=== PATIENT | female | born 1950 | race Caucasian/White ===

== ENCOUNTER 2018-08-22 05:43 | Day surgery (SDC) | payer BC, MEDICARE ==
[2018-08-22] MEDS ORDERED: DIPRIVAN 200 MG/20 ML IV ONE (05:44)
[2018-08-22] MEDS ORDERED: Lactated Ringers 1,000 ML IV SCH (06:00)
[2018-08-22 08:36] VITALS: BP 141/75; PULSE 63; O2SAT 97
--- NOTE | 2018-08-22 10:17 | OP ---
SURGERY DATE/TIME: 08/22/2018711 PREOPERATIVE DIAGNOSES: 1) Epigastric abdominal pain. 2) History of colon polyps. POSTOPERATIVE DIAGNOSES: 1) Normal EGD. 2) Cecal polyp. PROCEDURES: 1) EGD. 2) Colonoscopy. SURGEON: Yfn Lubin M.D. ANESTHESIA: MAC by Mandeep Betancur CRNA. ESTIMATED BLOOD LOSS: Minimal. SPECIMENS: Hot forceps polypectomy from the cecum x1. DESCRIPTION OF PROCEDURE: After informed written consent was obtained, the patient was taken to the endoscopy suite. She underwent monitored anesthesia after a bite block was inserted. The endoscope inserted in posterior oropharynx and under direct visualization the esophagus was traversed. The esophageal mucosa was free of lesions or defects. There was a small hiatal hernia appreciable entering the gastric cavity. The gastric mucosa was free of lesions or defects. There were no obvious ulcerations or evidence of bleeding, etc. The pylorus was traversed and the first and second portions of the duodenum had a normal mucosal appearance. Upon withdrawal the mucosal structures again appeared normal. On retroflexion again there was a small hiatal hernia very minimal in nature appreciable. The scope was removed and the scopes were switched. Digital rectal exam showed normal sphincter tone and no internal lesions. The scope was inserted in the rectum and sequentially the entire colonic mucosa was traversed. The level of cecum was reached and verified with direct visualization of ileocecal valve. There was a small sessile polyp in the pericecal region which was grasped with forceps and cauterized removed in its entirety in two pieces. The entire lesion was removed and the area was hemostatic following removal. Upon withdrawal no other mucosal abnormalities were appreciable. Prior to withdrawal retroflexion was performed and showed no internal lesions. The scope was removed and the patient was transferred to the recovery room in good condition.
== END 2018-08-22 08:51 | disposition home or self-care (01) ==
LOC: SDC 05:43
PROVIDERS: ATTEND Family Medicine
DX: R10.13 Epigastric pain (principal); Z86.010 Personal history of colon polyps; E11.9 Type 2 diabetes mellitus without complications; Z79.4 Long term (current) use of insulin
CPT/HCPCS: 82962; 88305; 94250; J2704

== ENCOUNTER 2022-06-22 13:14 | Day surgery (SDC) | payer MEDICARE ==
[2022-06-22] MEDS ORDERED: Depo-Medrol 40 MG/ML IM ONE (13:15)
[2022-06-22] MEDS ORDERED: XYLOCAINE-MPF 1% 5ML SDV IJ ONE (13:15)
[2022-06-22] MEDS ORDERED: Marcaine Mpf 0.5% Vial 30 Ml IJ ONE (13:15)
--- NOTE | 2022-06-22 21:54 | XRAY ---
Indication: Left SI joint and left greater trochanter bursa injection. Intraoperative fluoroscopy provided for 21 seconds. 3 digital spot image submitted for interpretation demonstrates posterior needle tip projecting over the inferior left SI joint. Second needle tip lateral to left greater trochanter with small amount of contrast injected for needle tip placement. Correlate with intraoperative findings/report.
--- NOTE | 2022-06-22 22:11 | XRAY ---
21 seconds of fluoroscopy was used in surgery for a left sacroiliac joint injection and left greater trochanteric bursa injection.
== END 2022-06-22 15:52 | disposition home or self-care (01) ==
LOC: SDC-PAIN 13:14
PROVIDERS: ATTEND Psychiatry & Neurology Pain Medicine
DX: M46.1 Sacroiliitis, not elsewhere classified (principal); M16.12 Unilateral primary osteoarthritis, left hip; E11.9 Type 2 diabetes mellitus without complications; Z79.899 Other long term (current) drug therapy
CPT/HCPCS: 20610; 27096; 73502; 77002; 82947; G0260; J1030; Q9966

== ENCOUNTER 2022-07-20 08:35 | Day surgery (SDC) | payer MEDICARE ==
[2022-07-20] MEDS ORDERED: XYLOCAINE-MPF 1% 5ML SDV IJ ONE (08:36)
[2022-07-20] MEDS ORDERED: Decadron 4 MG INJ IV ONE (08:36)
[2022-07-20] MEDS ORDERED: DIPRIVAN 200 MG/20 ML IV ONE (10:22)
[2022-07-20] MEDS ORDERED: Lactated Ringers 1,000 ML IV ONE (10:59)
--- NOTE | 2022-07-20 11:31 | XRAY ---
Indication: Bilateral piriformis injections. Intraoperative fluoroscopy provided for 23 seconds. 2 digital spot images submitted for interpretation demonstrate posterior needle tip projecting over the expected left and right piriformis muscles. Small amount of contrast injected for needle tip placement. Correlate with intraoperative findings/report.
--- NOTE | 2022-07-20 12:13 | XRAY ---
23 seconds fluoroscopy time in surgery for bilateral piriformis muscle injections.
== END 2022-07-20 10:45 | disposition home or self-care (01) ==
LOC: SDC-PAIN 08:35
PROVIDERS: ATTEND Psychiatry & Neurology Pain Medicine
DX: M79.18 Myalgia, other site (principal); E11.9 Type 2 diabetes mellitus without complications; Z79.899 Other long term (current) drug therapy
CPT/HCPCS: 20552; 72170; 77002; 82947; 99100; J1100; J2704; Q9966

== ENCOUNTER 2022-08-10 10:01 | Day surgery (SDC) | payer MEDICARE ==
[2022-08-10] MEDS ORDERED: LIDOCAINE HCL 1% 50 MG/5 ML VL PF IJ ONE (10:02)
[2022-08-10] MEDS ORDERED: DIPRIVAN 200 MG/20 ML IV ONE (11:57)
[2022-08-10] MEDS ORDERED: Lactated Ringers 1,000 ML IV ONE (12:42)
--- NOTE | 2022-08-10 13:48 | XRAY ---
8 seconds of fluoroscopy was used in surgery for a bilateral L4-S1 MBB.
--- NOTE | 2022-08-10 19:53 | XRAY ---
Indication: Bilateral L4-S1 MBB. Intraoperative fluoroscopy provided for 8 seconds. Single digital spot image submitted for interpretation demonstrates posterior needle tips projecting over the expected left and right L4-S1 nerve roots. Correlate with intraoperative findings/report.
== END 2022-08-10 12:25 | disposition home or self-care (01) ==
LOC: SDC-PAIN 10:01
PROVIDERS: ATTEND Psychiatry & Neurology Pain Medicine
DX: M47.816 Spondylosis without myelopathy or radiculopathy, lumbar region (principal); E11.9 Type 2 diabetes mellitus without complications; Z79.899 Other long term (current) drug therapy
CPT/HCPCS: 64493; 64494; 72020; 77002; 82947; J2001; J2704

== ENCOUNTER 2022-10-26 09:21 | Day surgery (SDC) | payer MEDICARE ==
[2022-10-26] MEDS ORDERED: BUPIVACAINE 0.5% VIAL IJ ONE (09:22)
[2022-10-26] MEDS ORDERED: DIPRIVAN 200 MG/20 ML IV ONE (11:35)
--- NOTE | 2022-10-26 12:20 | XRAY ---
Indication: Bilateral L4-S1 MBB. Intraoperative fluoroscopy provided for 12 seconds. Single digital spot images submitted for interpretation demonstrates posterior needle tips projecting over the left and right L4-S1 nerve roots. Correlate with intraoperative findings/report. Incidental overlying ventral hernia mesh graft.
--- NOTE | 2022-10-26 13:51 | XRAY ---
12 seconds of fluoroscopy was used in surgery for a bilateral L4-S1 MBB.
[2022-10-26] MEDS ORDERED: Lactated Ringers 1,000 ML IV ONE (16:29)
== END 2022-10-26 12:04 | disposition home or self-care (01) ==
LOC: SDC-PAIN 09:21
PROVIDERS: ATTEND Psychiatry & Neurology Pain Medicine
DX: M47.816 Spondylosis without myelopathy or radiculopathy, lumbar region (principal); E11.9 Type 2 diabetes mellitus without complications; Z79.899 Other long term (current) drug therapy
CPT/HCPCS: 64493; 64494; 72020; 77002; 82947; J2704

== ENCOUNTER 2022-11-23 08:38 | Day surgery (SDC) | payer MEDICARE ==
[2022-11-23] MEDS ORDERED: Depo-Medrol 40 MG/ML IM ONE (08:39)
[2022-11-23] MEDS ORDERED: BUPIVACAINE 0.5% VIAL IJ ONE (08:39)
[2022-11-23] MEDS ORDERED: LIDOCAINE HCL 1% 50 MG/5 ML VL PF IJ ONE (08:39)
[2022-11-23] MEDS ORDERED: DIPRIVAN 200 MG/20 ML IV ONE (10:28)
--- NOTE | 2022-11-23 12:12 | XRAY ---
Indication: Right L4-S1 RFA. Intraoperative fluoroscopy provided for 21 seconds. 2 digital spot images submitted for interpretation demonstrates posterior needle tips projecting over the expected right L4-S1 nerve roots. Correlate with intraoperative findings/report.
--- NOTE | 2022-11-23 12:22 | XRAY ---
21 seconds fluoroscopy time in surgery for right L4-S1 RFA.
[2022-11-23] MEDS ORDERED: Lactated Ringers 1,000 ML IV ONE (15:29)
== END 2022-11-23 11:10 | disposition home or self-care (01) ==
LOC: SDC-PAIN 08:38
PROVIDERS: ATTEND Psychiatry & Neurology Pain Medicine
DX: M47.816 Spondylosis without myelopathy or radiculopathy, lumbar region (principal); E11.9 Type 2 diabetes mellitus without complications; Z79.899 Other long term (current) drug therapy
CPT/HCPCS: 64635; 64636; 72100; 77002; 82947; 99100; J1030; J2001; J2704

== ENCOUNTER 2022-11-30 08:34 | Day surgery (SDC) | payer MEDICARE ==
[2022-11-30] MEDS ORDERED: LIDOCAINE HCL 1% 50 MG/5 ML VL PF IJ ONE (08:35)
[2022-11-30] MEDS ORDERED: BUPIVACAINE 0.5% VIAL IJ ONE (08:35)
[2022-11-30] MEDS ORDERED: Depo-Medrol 40 MG/ML IM ONE (08:35)
[2022-11-30] MEDS ORDERED: DIPRIVAN 200 MG/20 ML IV ONE (10:35)
--- NOTE | 2022-11-30 11:30 | XRAY ---
Indication: Left L4-S1 RFA. Intraoperative fluoroscopy provided for 26 seconds. 3 digital spot image submitted for interpretation demonstrates posterior needle tips projecting over the expected left L4-S1 nerve roots. Correlate with intraoperative findings/report.
[2022-11-30] MEDS ORDERED: Lactated Ringers 1,000 ML IV ONE (11:36)
--- NOTE | 2022-11-30 12:25 | XRAY ---
26 seconds of fluoroscopy was used in surgery for a left L4-S1 RFA.
== END 2022-11-30 11:15 | disposition home or self-care (01) ==
LOC: SDC-PAIN 08:34
PROVIDERS: ATTEND Psychiatry & Neurology Pain Medicine
DX: M47.816 Spondylosis without myelopathy or radiculopathy, lumbar region (principal); E11.9 Type 2 diabetes mellitus without complications; Z79.899 Other long term (current) drug therapy
CPT/HCPCS: 64635; 64636; 72100; 77002; 82947; 99100; J1030; J2001; J2704

== ENCOUNTER 2023-05-24 08:17 | Day surgery (SDC) | payer MEDICARE ==
[2023-05-24] MEDS ORDERED: BUPIVACAINE 0.5% VIAL IJ ONE (08:18)
[2023-05-24] MEDS ORDERED: Depo-Medrol 40 MG/ML IM ONE (08:18)
[2023-05-24] MEDS ORDERED: DIPRIVAN 200 MG/20 ML IV ONE (10:33)
[2023-05-24] MEDS ORDERED: Lactated Ringers 1,000 ML IV ONE (11:12)
--- NOTE | 2023-05-24 11:53 | XRAY ---
Indication: Left SI joint and left greater trochanter bursa injection. Intraoperative fluoroscopy provided for 18 seconds. 4 digital spot image submitted for interpretation demonstrates posterior needle tip project over the left SI joint. Second needle tip lateral to the left greater trochanter with small amount of contrast injected for needle tip placement. Correlate with intraoperative findings/report.
--- NOTE | 2023-05-24 13:03 | XRAY ---
18 seconds of fluoroscopy was used in surgery for a left sacroiliac joint and greater trochanteric bursa injection.
== END 2023-05-24 11:00 | disposition home or self-care (01) ==
LOC: SDC-PAIN 08:17
PROVIDERS: ATTEND Psychiatry & Neurology Pain Medicine
DX: M46.1 Sacroiliitis, not elsewhere classified (principal); M16.12 Unilateral primary osteoarthritis, left hip; E11.9 Type 2 diabetes mellitus without complications
CPT/HCPCS: 20610; 27096; 73501; 77002; 82947; G0260; J1030; J2704; Q9966

== ENCOUNTER 2023-12-04 05:46 | Day surgery (SDC) | payer MEDICARE ==
[2023-12-04 06:59] VITALS: RESP 18
[2023-12-04] MEDS ORDERED: Lactated Ringers 1,000 ML IV ONE ×2 (07:11→08:35)
[2023-12-04] MEDS ORDERED: Lactated Ringers 1,000 ML IV SCH (07:30)
[2023-12-04] MEDS ORDERED: DIPRIVAN 200 MG/20 ML IV ONE ×2 (07:50→08:32)
[2023-12-04] MEDS ORDERED: Versed 2 MG/2 ML Injection ONE (07:50)
[2023-12-04 09:08] VITALS: O2SAT 97
[2023-12-04 09:36] VITALS: BP 126/72; PULSE 60; TEMP 97.7
--- NOTE | 2023-12-04 11:34 | OP ---
SURGERY DATE/TIME: 12/04/2023 0804 PREOPERATIVE DIAGNOSIS: Weight loss and diarrhea. POSTOPERATIVE DIAGNOSIS: Normal colon to the sigmoid colon but failure to proceed past the sigmoid colon due to hairpin turn. PROCEDURE: Colonoscopy. SURGEON: Dr. Buck. ANESTHESIA: Medications given by anesthesia department. HISTORY: The patient is a 73-year-old white female who reports she has lost 35 pounds roughly over the past several months. It was noted in the patient's record that she has been taking aspirin. She reports that she is just not hungry and has to force herself to eat. Her dose of aspirin is 325 mg a day. It was also noted that the patient is on digoxin and we recommended checking a digoxin level to make sure she is not toxic with that as well. DESCRIPTION OF PROCEDURE: The patient was given the medications by the anesthesia department. She had continuous pulse oximetry, ECG monitoring and intermittent blood pressure monitoring during the examination. The abdominal exam was complicated by the presence of hernia which had failed at this point. A digital rectal examination was also performed and revealed normal anal sphincter tone and no masses. The flexible Olympus pediatric colonoscope was used to intubate the rectum. A view of the colon was developed to approximately the mid to proximal sigmoid colon but due to hairpin turn and approximately 15 minutes of trying, we were unable to pass beyond this area. It was prudent at this time to stop the examination. We withdrew the scope and no mucosal lesions were encountered. The scope was removed from the patient who tolerated the procedure well and sent back to OP recovery in good condition. The prep was noted to be fair to fair to good.
== END 2023-12-04 09:40 | disposition home or self-care (01) ==
LOC: SDC 05:46
PROVIDERS: ATTEND Family Medicine
DX: R63.4 Abnormal weight loss (principal); R19.7 Diarrhea, unspecified; E11.9 Type 2 diabetes mellitus without complications; K44.9 Diaphragmatic hernia without obstruction or gangrene
CPT/HCPCS: 82947; J2250; J2704

== ENCOUNTER 2024-04-24 09:38 | Day surgery (SDC) | payer MEDICARE ==
[2024-04-24] MEDS ORDERED: Sodium Chloride 0.9(Preservative Free) 10 ML IJ ONE (09:39)
[2024-04-24] MEDS ORDERED: Decadron 4 MG INJ IV ONE (09:39)
[2024-04-24] MEDS ORDERED: LIDOCAINE HCL 1% 50 MG/5 ML VL PF IJ ONE (09:39)
[2024-04-24] MEDS ORDERED: DIPRIVAN 200 MG/20 ML IV ONE (12:03)
[2024-04-24] MEDS ORDERED: Lactated Ringers 1,000 ML IV ONE (13:09)
--- NOTE | 2024-04-24 14:29 | XRAY ---
Indication: Left piriformis injection. Intraoperative fluoroscopy provided for 14 seconds. Single digital spot images submitted for interpretation demonstrates posterior needle tip projecting over the left piriformis. Small amount of contrast injected for needle tip placement. Correlate with intraoperative findings/report.
--- NOTE | 2024-04-24 14:29 | XRAY ---
Indication: Left L4-S1 transforaminal ANN. Intraoperative fluoroscopy provided for 22 seconds. 4 digital spot images submitted for interpretation demonstrates posterior needle tips projecting over the expected left L4 and L5 nerve roots. Small amount of contrast injected for needle tip placement. Correlate with intraoperative findings/report.
--- NOTE | 2024-04-24 14:57 | XRAY ---
14 seconds of fluoroscopy was used in surgery for a left piriformis injection.
--- NOTE | 2024-04-24 14:57 | XRAY ---
22 seconds of fluoroscopy was used in surgery for a left L4-S1 transforaminal ANN.
== END 2024-04-24 12:35 | disposition home or self-care (01) ==
LOC: SDC-PAIN 09:38
PROVIDERS: ATTEND Psychiatry & Neurology Pain Medicine
DX: M54.16 Radiculopathy, lumbar region (principal); M79.18 Myalgia, other site; E11.9 Type 2 diabetes mellitus without complications
CPT/HCPCS: 20552; 64483; 64484; 72100; 72170; 77002; 77003; 82947; 99100; J1100; J2001; J2704; Q9966

== ENCOUNTER 2024-05-07 15:38 | Emergency (ER) | payer MEDICARE ==
[2024-05-07 16:06] VITALS: TEMP 98.3
[2024-05-07 16:36] VITALS: O2SAT 95
[2024-05-07 16:37] VITALS: PULSE 66
[2024-05-07 16:48] LABS: Absolute Neutrophil Ct (ANC) 5.63 x10^3/uL (1.56-6.13); BASOPHIL % 0.4 % (0.1-1.2); Basophil (Absolute #) 0.03 x10^3/uL (0.01-0.08); Eosinophil % 0.7 % (0.7-5.8); Eosinophil (Absolute #) 0.06 x10^3/uL (0.04-0.36); Hematocrit 36.9 % (34.1-44.9); Hemoglobin 12.8 g/dL (11.2-15.7); IMMATURE GRAN # 0.03 x10^3u/L (0.001-0.031); IMMATURE GRAN % 0.4 % (0.001-0.429); Lymphocyte (Absolute #) 1.78 x10^3/uL (1.18-3.74); Lymphocytes % 22.2 % (19.3-51.7); Mean Cell Volume 92.9 fL (79.4-94.8); Mean Corpuscular Hemoglobin 32.2 pg (25.6-32.2); Mean Corpuscular Hgb Concent. 34.7 g/dL (32.2-35.5); Mean Platelet Volume 10.4 fL (9.4-12.3); Monocyte (Absolute #) 0.49 x10^3/uL (0.24-0.86); Monocytes % 6.1 % (4.7-12.5); Neutrophil % 70.2 % (34.0-71.1); Platelet Count 228 x10^3/uL (182-369); Red Blood Count 3.97 x10^6/uL (3.93-5.22); Red Cell Distribution Width 12.4 % (11.7-14.4)
[2024-05-07 16:53] LABS: ALBUMIN 4.1 g/dL (3.5-5.0); BILIRUBIN,TOTAL 0.5 mg/dL (0.2-1.3); Calcium 9.2 mg/dL (8.4-10.2); Creatinine 1 0.68 mg/dL (0.52-1.04); EST GLOMERULAR FILTRATION RATE 91.9 ML/MIN; Potassium 4.7 mmol/L (3.5-5.1); Total Protein 6.5 g/dL (6.3-8.2)
--- NOTE | 2024-05-07 17:01 | ERPHSYRPT ---
- History of Present Illness Time Seen by Provider: 05/07/24 16:30 Source: patient Exam Limitations: no limitations Patient Subjective Stated Complaint: pt states she was taking pill and felt one get stuck in her throat last night Triage Nursing Assessment: pt ambulated into the er; pt is axo x4; pt is anxious; pt states 7/10 to epigastric region; clear lung sounds; clear upper airway; clear apical heart tone; no respiratory distress present; skin PDW; hypertensive Physician History: 73-year-old female presents to our ED as a referral from [facility] for evaluation of lower chest pain. Patient reports she swallowed her usual pill as prescribed by her family physician. Patient states she feels as though the pill is stuck in her lower esophagus. Patient went to [facility] and was advised to come to the ED for an evaluation to rule out cardiac pathology as a cause for her pain. No associated nausea vomiting or diaphoresis. Patient able to eat and tolerating p.o. Patient tolerates fluids. No trauma no fever. Patient denies a history of the same. She otherwise feels well she voices no other complaints or concerns at this time. Portions of this note were created with voice recognition technology. There may be grammatical, spelling, punctuation or sound alike errors Timing/Duration: yesterday Severity: moderate Modifying Factors: Improves With: nothing Associated Symptoms: denies symptoms Allergies/Adverse Reactions: cefdinir Allergy (Verified 05/07/24 15:40) Hives Penicillins Adverse Reaction (Intermediate, Verified 05/07/24 15:40) Rash methylprednisolone [From Medrol] Adverse Reaction (Verified 05/07/24 15:40) Rash Iaimpaj-MRP-AyS Reductase Inhibitor [Iwprebn-Yqx-Dtb Reductase Inhibitor] Adverse Reaction (Verified 05/07/24 15:40) Muscle Aches Sulfa (Sulfonamide Antibiotics) Adverse Reaction (Verified 05/07/24 15:40) Rash Home Medications: ALPRAZolam [Xanax 0.25 mg] 1 mg PO HS 05/12/16 [History] Digoxin 0.125 mg Tablet [Lanoxin 0.125MG TABLET] 0.125 mg PO HS 05/12/16 [History] Magnesium Oxide 400 mg [Mag-Ox 400] 400 mg PO BID 05/12/16 [History] Montelukast Sodium [Singulair] 10 mg PO HS 05/12/16 [History] Spironolactone 25 mg [Aldactone 25 MG] 0.5 tab PO DAILY 05/12/16 [History] Cetirizine HCl [Zyrtec] 10 mg PO DAILY 08/16/18 [History] Escitalopram Oxalate [Lexapro] 10 mg PO DAILY 08/16/18 [History] Fluticasone Propionate [Flonase NASAL] 16 gm NS DAILY 08/16/18 [History] Losartan Potassium 50 mg [Cozaar 50 MG] 12.5 mg PO DAILY 08/16/18 [History] Aspirin EC 81 mg [Ecotrin 81 mg] 81 mg PO DAILY 05/07/24 [History] Niacin (Inositol Niacinate) [Niacin 500 mg Capsule] 1,000 mg PO BID 05/07/24 [History] clindamycin HCL [Clindamycin HCl] 300 mg PO TID 05/07/24 [History] Hx Tetanus, Diphtheria Vaccination/Date Given: Yes Hx Influenza Vaccination/Date Given: Yes Hx Pneumococcal Vaccination/Date Given: Yes Immunizations Up to Date: No Travel Risk - International Travel Have you traveled outside of the country in past 3 weeks: No - Emerging Infectious Disease Are you exhibiting symptoms associated with any current EIDs: No - Review of Systems Constitutional: No Symptoms, No Fever, No Chills Eyes: No Symptoms Ears, Nose, & Throat: No Symptoms Respiratory: No Symptoms, No Cough, No Dyspnea Cardiac: No Symptoms, No Chest Pain, No Edema, No Syncope Abdominal/Gastrointestinal: No Symptoms, No Abdominal Pain, No Nausea, No Vomiting, No Diarrhea Genitourinary Symptoms: No Symptoms, No Dysuria Musculoskeletal: No Symptoms, No Back Pain, No Neck Pain Skin: No Symptoms, No Rash Neurological: No Symptoms, No Dizziness, No Focal Weakness, No Sensory Changes Psychological: No Symptoms Endocrine: No Symptoms Hematologic/Lymphatic: No Symptoms Immunological/Allergic: No Symptoms All Other Systems: Reviewed and Negative - Past Medical History Pertinent Past Medical History: Yes Neurological History: No Pertinent History ENT History: Cataracts Cardiac History: Arrhythmia, Congestive Heart Failure, High Cholesterol, Hypertension Respiratory History: No Pertinent History Endocrine Medical History: Diabetes Type II Musculoskeletal History: Arthritis GI Medical History: Hernia, Other History: No Pertinent History Psycho-Social History: No Pertinent History Female Reproductive Disorders: Abnormal Uterine Bleeding Other Medical History: PACEMAKER AND DEFIBRILLATOR. SX HISTORY: LEFT THUMB I&D WITH SCREW FIXATION, LEFT ANKLE FX WITH SURGERY FIXATION, HERNIA REPAIRS. COVID HISTORY (FEBRUARY 2022): CONTINUES WITH NO SMELL AND TASTE WITH DECREASED APPETITE . - Past Surgical History Past Surgical History: Yes Neuro Surgical History: No Pertinent History Cardiac: Cardiac Catheterization, Internal Defibrillator, Pacemaker Respiratory: No Pertinent History Gastrointestinal: Hernia Repair Genitourinary: No Pertinent History Musculoskeletal: Orthopedic Surgery Female Surgical History: Hysterectomy Other Surgical History: abd hernior.,right ankle fx with hdwe placed and removed,alvaro cataract removed w/ lens implant.,left hand surgery with hdwe placed,still in place, left shoulder surgery - Social History Smoking Status: Never smoker Exposure to second hand smoke: No Drug Use: none - Social Determinants of Health Will the patient participate in the screening: Yes Do you worry about a steady place to live?: No Do you have any problems with any of the following?: No known problems In the past 12 months,have you had to go without utilities?: No Transportation Issues: No Has anyone in your support network made you feel unsafe?: No Have you or anyone in your house had to go without enough: No - Nursing Vital Signs Nursing Vital Signs: Initial Vital Signs Temperature 98.3 F 05/07/24 15:46 Pulse Rate 79 05/07/24 15:46 Respiratory Rate 22 05/07/24 15:46 Blood Pressure 164/70 05/07/24 15:46 O2 Sat by Pulse Oximetry 97 05/07/24 15:46 Pain Scale Pain Intensity 7 - Physical Exam General Appearance: no apparent distress, alert Eye Exam: PERRL/EOMI, eyes nml inspection Ears, Nose, Throat Exam: normal ENT inspection, TMs normal, pharynx normal, moist mucous membranes Neck Exam: normal inspection, non-tender, supple, full range of motion Respiratory Exam: normal breath sounds, lungs clear, airway intact, No respiratory distress Cardiovascular Exam: regular rate/rhythm, normal heart sounds, normal peripheral pulses Gastrointestinal/Abdomen Exam: soft, normal bowel sounds, No tenderness, No mass Back Exam: normal inspection, normal range of motion, No CVA tenderness, No vertebral tenderness Extremity Exam: normal inspection, normal range of motion, pelvis stable Neurologic Exam: alert, oriented x 3, cooperative, normal mood/affect, sensation nml, No motor deficits Skin Exam: normal color, warm, dry, No rash Lymphatic Exam: No adenopathy SpO2 Interpretation: normal SpO2: 95 O2 Delivery: Room Air - Course Nursing assessment & vital signs reviewed: Yes EKG Interpreted by Me: RATE (70 paced rhythm), NORMAL AXIS, NORMAL INTERVALS - Radiology Exams Chest X-ray Interpretation: Teleradiologist Report (Nonacute chest with chronic features) Ordered Tests: Active Orders 24 hr Category Date Time Status Sewer STAT Care 05/07/24 16:18 Active EKG-ER Only STAT Care 05/07/24 16:17 Active Pulse Oximetry (ED) STAT Care 05/07/24 16:17 Active CHEST 1 VIEW (PORTABLE) Stat Exams 05/07/24 16:31 Completed CBC W DIFF Stat Lab 05/07/24 16:34 Completed CMP Stat Lab 05/07/24 16:34 Completed TROPONIN Q4H Lab 05/07/24 16:34 Completed TROPONIN Q4H Lab 05/07/24 20:30 Ordered TROPONIN Q4H Lab 05/08/24 00:30 Ordered Lab/Rad Data: Laboratory Result Diagrams 05/07/24 16:34 05/07/24 16:34 Laboratory Results 05/07/24 05/07/24 05/07/24 Range/Units 16:34 16:34 16:34 WBC 8.0 (3.98-10.04) x10^3/uL RBC 3.97 (3.93-5.22) x10^6/uL Hgb 12.8 (11.2-15.7) g/dL Hct 36.9 (34.1-44.9) % MCV 92.9 (79.4-94.8) fL MCH 32.2 (25.6-32.2) pg MCHC 34.7 (32.2-35.5) g/dL RDW 12.4 (11.7-14.4) % Plt Count 228 (182-369) x10^3/uL MPV 10.4 (9.4-12.3) fL Gran % 70.2 (34.0-71.1) % Immature Gran % (Auto) 0.4 (0.001-0.429) % Nucleat RBC Rel Count 0.0 (0.00-0.2) % Eos # (Auto) 0.06 (0.04-0.36) x10^3/uL Immature Gran # (Auto) 0.03 (0.001-0.031) x10^3u/L Absolute Lymphs (auto) 1.78 (1.18-3.74) x10^3/uL Absolute Monos (auto) 0.49 (0.24-0.86) x10^3/uL Absolute Nucleated RBC 0.00 (0.00-0.012) x10^3u/L Lymphocytes % 22.2 (19.3-51.7) % Monocytes % 6.1 (4.7-12.5) % Eosinophils % 0.7 (0.7-5.8) % Basophils % 0.4 (0.1-1.2) % Absolute Granulocytes 5.63 (1.56-6.13) x10^3/uL Basophils # 0.03 (0.01-0.08) x10^3/uL Sodium 132 L (135-145) mmol/L Potassium 4.7 (3.5-5.1) mmol/L Chloride 99 (98-107) mmol/L Carbon Dioxide 22 (22-30) mmol/L Anion Gap 15.0 (5-15) MEQ/L BUN 20 H (7-17) mg/dL Creatinine 0.68 (0.52-1.04) mg/dL Estimated GFR 91.9 ML/MIN Glucose 160 H (74-106) mg/dL Calcium 9.2 (8.4-10.2) mg/dL Total Bilirubin 0.50 (0.2-1.3) mg/dL AST 29 (14-36) U/L ALT 23 (0-35) U/L Alkaline Phosphatase 61 (38-126) U/L Troponin I < 0.012 (0.000-0.033) ng/mL Serum Total Protein 6.5 (6.3-8.2) g/dL Albumin 4.1 (3.5-5.0) g/dL - Progress Progress: improved Progress Note: Spoke to Dr. Travis at 5:35 PM. Patient able to tolerate p.o. Patient able to tolerate solids and liquids. However she has a sensation of a pill lodged in her esophagus. Per Dr. Travis patient to follow-up with him in the office. 73-year-old female presents to our ED as a referral from [facility] for evaluation of some chest discomfort which patient associates with a pill stuck in her esophagus. [facility] request that we screen patient to assure was not cardiac related. Patient cardiac workup is negative. I spoke to general surgery who advises following up in office. A scope can be done as an outpatient if indicated at the time of follow-up. Patient voices no other complaints or concerns at this time. Portions of this note were created with voice recognition technology. There may be grammatical, spelling, punctuation or sound alike errors Complexity problem addressed is moderate acute complicated. No critical care time. Complex of data reviewed and analyzed is moderate. Test ordered test reviewed results analyzed and correlated clinically with history and physical examination. Risk of complication or risk of morbidity/mortality patient management is low. Vital stable. Time spent to discharge patient approximately 20 minutes. Plan of care established for shared decision making. Patient voices no other complaints or concerns at this time. Portions of this note were created with voice recognition technology. There may be grammatical, spelling, punctuation or sound alike errors 05/07/24 17:[address] Dc (Case discussed with Dr. Romero 5:35 PM) Counseled pt/family regarding: lab results, diagnosis, need for follow-up, rad results - Departure Departure Disposition: Home Clinical Impression: Pill esophagitis, Sensation of foreign body in esophagus Condition: Stable Critical Care Time: No Referrals: WANDA WETZEL NP [Primary Care Provider] - Follow up/PCP as directed KILEY TRAVIS [COURTESY STAFF] - Follow up/PCP as directed Additional Instructions: Discharge/Care Plan CHRISTIANO ALBRIGHT was seen on 05/07/24 in the Emergency Room. The patient was counseled regarding Diagnosis,Lab results, Imaging studies, need for follow up and when to return to the Emergency Room. Prescriptions given: Discharge Note I have spoken with the patient and/or caregivers. I have explained the patient's condition, diagnosis and treatment plan based on the information available to me at this time. I have answered the patient's and/or caregiver's questions and addressed any concerns. The patient and/or caregivers have as good understanding of the patient's diagnosis, condition and treatment plan as can be expected at this point. The vital signs have been stable. The patient's condition is stable and appropriate for discharge from the emergency department. The patient will pursue further outpatient evaluation with the primary care physician or other designated or consulting physician as outlined in the discharge instructions. The patient and/or caregivers are agreeable to this plan of care and follow-up instructions have been explained in detail. The patient and/or caregivers have received these instruction. The patient/and or caregivers are aware that any significant change in condition or worsening of symptoms should prompt an immediate return to this or the closest emergency department or call 911.
--- NOTE | 2024-05-07 17:01 | XRAY ---
Indication: Pain and short of breath. Comparison: April 20, 2022 Portable chest again demonstrates left AICD partially obscuring left lung base. Visualized lungs inflated and remain clear. Heart not enlarged. Bony thorax intact again with mild degenerative changes. Impression: Continued nonacute chest with chronic features.
[2024-05-07 17:07] VITALS: BP 129/67; RESP 23
== END 2024-05-07 17:48 | disposition home or self-care (01) ==
LOC: ED 15:38
DX: K20.80 Other esophagitis without bleeding (principal); R09.A2 Foreign body sensation, throat; R07.9 Chest pain, unspecified; I11.0 Hypertensive heart disease with heart failure; I50.9 Heart failure, unspecified; E78.5 Hyperlipidemia, unspecified; E11.9 Type 2 diabetes mellitus without complications; Z79.899 Other long term (current) drug therapy
CPT/HCPCS: 36415; 71045; 80053; 84484; 85025; 93005; 93041; 94760; 99284

== ENCOUNTER 2024-08-28 07:56 | Day surgery (SDC) | payer MEDICARE ==
[2024-08-28] MEDS ORDERED: LIDOCAINE HCL 1% AMPUL 5 ML IJ ONE (07:57)
[2024-08-28] MEDS ORDERED: Decadron 4 MG INJ IV ONE (07:57)
[2024-08-28] MEDS ORDERED: Sodium Chloride 0.9(Preservative Free) 10 ML IJ ONE (07:57)
[2024-08-28] MEDS ORDERED: DIPRIVAN 200 MG/20 ML IV ONE (10:02)
[2024-08-28] MEDS ORDERED: Lactated Ringers 1,000 ML IV ONE (10:53)
--- NOTE | 2024-08-28 11:59 | XRAY ---
Indication: Left L4-S1 transforaminal ANN. Intraoperative fluoroscopy provided for 28 seconds. 5 digital spot image submitted for interpretation demonstrates posterior needle tips projecting over the expected left L4 and L5 nerve roots. Small amount of contrast injected for needle tip placement. Correlate with intraoperative findings/report.
--- NOTE | 2024-08-28 11:59 | XRAY ---
Indication: Left piriformis injection ANN. Intraoperative fluoroscopy provided for 11 seconds. Single digital spot image submitted for interpretation demonstrates posterior needle tip projecting over the left piriformis. Small amount of contrast injected for needle tip placement. Correlate with intraoperative findings/report.
--- NOTE | 2024-08-28 13:01 | XRAY ---
28 seconds of fluoroscopy was used in surgery for a left L4-S1 transforaminal ANN.
--- NOTE | 2024-08-28 13:01 | XRAY ---
11 seconds of fluoroscopy was used in surgery for a left piriformis injection.
== END 2024-08-28 10:43 | disposition home or self-care (01) ==
LOC: SDC-PAIN 07:56
PROVIDERS: ATTEND Psychiatry & Neurology Pain Medicine
DX: M54.16 Radiculopathy, lumbar region (principal); E11.9 Type 2 diabetes mellitus without complications
CPT/HCPCS: 20552; 64483; 64484; 72100; 72170; 77002; 77003; 82947; 99100; J1100; J2704; Q9966

== ENCOUNTER 2024-09-26 18:42 | Emergency (ER) | payer MEDICARE ==
[2024-09-26 19:13] VITALS: TEMP 98.3
--- NOTE | 2024-09-26 19:31 | ERPHSYRPT ---
- History of Present Illness Time Seen by Provider: 09/26/24 19:14 Source: patient Exam Limitations: no limitations Patient Subjective Stated Complaint: C/O HTN, BLE edema since yesterday. Denies chest pain. Triage Nursing Assessment: Patient ambulated back to ER without difficulties. She is alert and oriented; anxious. NO SOB. Skin tone normal. Trace edema BLE. MOISES ROCA. Physician History: 74-year-old female presents to emergency department for evaluation of hypertension and bilateral lower extremity swelling. Patient states that she observed leg swelling earlier in the day. Patient took a Lasix 20 mg just prior to arrival. Patient also took a dose of metoprolol at the same time. No other complaints. No chest pain or shortness of breath. No nausea vomiting or diaphoresis. No obvious leg swelling on my exam today. However patient's blood pressure systolic is 174. Patient currently asymptomatic Portions of this note were created with voice recognition technology. There may be grammatical, spelling, punctuation or sound alike errors Timing/Duration: today Severity: moderate Modifying Factors: Improves With: nothing Associated Symptoms: denies symptoms Allergies/Adverse Reactions: cefdinir Allergy (Verified 09/26/24 18:59) Hives Penicillins Adverse Reaction (Intermediate, Verified 09/26/24 18:59) Rash methylprednisolone [From Medrol] Adverse Reaction (Verified 09/26/24 18:59) Rash Iifptiu-PLQ-VjE Reductase Inhibitor [Poyehjb-Htp-Idd Reductase Inhibitor] Ad verse Reaction (Verified 09/26/24 18:59) Muscle Aches Sulfa (Sulfonamide Antibiotics) Adverse Reaction (Verified 09/26/24 18:59) Rash Home Medications: ALPRAZolam [Xanax 0.25 mg] 1 mg PO HS 05/12/16 [History] Digoxin 0.125 mg Tablet [Lanoxin 0.125MG TABLET] 0.125 mg PO HS 05/12/16 [History] Magnesium Oxide 400 mg [Mag-Ox 400] 400 mg PO BID 05/12/16 [History] Montelukast Sodium [Singulair] 10 mg PO HS 05/12/16 [History] Spironolactone 25 mg [Aldactone 25 MG] 12.5 mg PO DAILY 05/12/16 [History] Escitalopram Oxalate [Lexapro] 10 mg PO DAILY 08/16/18 [History] Losartan Potassium 50 mg [Cozaar 50 MG] 12.5 mg PO DAILY 08/16/18 [History] Aspirin EC 81 mg [Ecotrin 81 mg] 81 mg PO DAILY 05/07/24 [History] Niacin (Inositol Niacinate) [Niacin 500 mg Capsule] 1,000 mg PO BID 05/07/24 [History] Cyanocobalamin (Vitamin B-12) [Vitamin B12] 5,000 mcg PO DAILY 09/26/24 [History] Ergocalciferol (Vitamin D2) [Vitamin D2] 50,000 unit PO WEEKLY 09/26/24 [History] Metformin HCl 500 mg [Glucophage 500 MG] 500 mg PO DAILY 09/26/24 [Histo ry] Metoprolol Succinate 25 mg Xl* [Toprol-Xl 25MG Tablets] 12.5 mg PO HS 09/26/24 [History] [place]-3 Fatty Acids/Fish Oil [Fish Oil 1,200 mg Softgel] 2,400 mg PO DAILY 09/26/24 [History] Omeprazole 20 mg PO DAILY 09/26/24 [History] Hx Tetanus, Diphtheria Vaccination/Date Given: Yes Hx Influenza Vaccination/Date Given: Yes Hx Pneumococcal Vaccination/Date Given: Yes Immunizations Up to Date: Yes Travel Risk - International Travel Have you traveled outside of the country in past 3 weeks: No - Emerging Infectious Disease Are you exhibiting symptoms associated with any current EIDs: Yes Symptoms: Abdominal Pain, Diarrhea, Headaches/Body Aches/ - Review of Systems Constitutional: No Symptoms, No Fever, No Chills Eyes: No Symptoms Ears, Nose, & Throat: No Symptoms Respiratory: No Symptoms, No Cough, No Dyspnea Cardiac: No Symptoms, No Chest Pain, No Edema, No Syncope Abdominal/Gastrointestinal: No Symptoms, No Abdominal Pain, No Nausea, No Vomiting, No Diarrhea Genitourinary Symptoms: No Symptoms, No Dysuria Musculoskeletal: No Symptoms, No Back Pain, No Neck Pain Skin: No Symptoms, No Rash Neurological: No Symptoms, No Dizziness, No Focal Weakness, No Sensory Changes Psychological: No Symptoms Endocrine: No Symptoms Hematologic/Lymphatic: No Symptoms Immunological/Allergic: No Symptoms All Other Systems: Reviewed and Negative - Past Medical History Pertinent Past Medical History: Yes Neurological History: No Pertinent History ENT History: Cataracts Cardiac History: Arrhythmia, Congestive Heart Failure, High Cholesterol, Hypertension Respiratory History: No Pertinent History Endocrine Medical History: Diabetes Type II Musculoskeletal History: Arthritis GI Medical History: Hernia, Other History: No Pertinent History Psycho-Social History: No Pertinent History Female Reproductive Disorders: Abnormal Uterine Bleeding Other Medical History: COVID - Past Surgical History Past Surgical History: Yes Neuro Surgical History: No Pertinent History Cardiac: Cardiac Catheterization, Internal Defibrillator, Pacemaker Respiratory: No Pertinent History Gastrointestinal: Hernia Repair Genitourinary: No Pertinent History Musculoskeletal: Orthopedic Surgery Female Surgical History: Hysterectomy Other Surgical History: right ankle fx, left hand surgery, left shoulder surgery - Social History Smoking Status: Never smoker Exposure to second hand smoke: No Drug Use: none - Social Determinants of Health Will the patient participate in the screening: Yes Do you worry about a steady place to live?: No Do you have any problems with any of the following?: No known problems In the past 12 months,have you had to go without utilities?: No Transportation Issues: No Has anyone in your support network made you feel unsafe?: No Have you or anyone in your house had to go without enough: No - Nursing Vital Signs Nursing Vital Signs: Initial Vital Signs Temperature 98.3 F 09/26/24 18:55 Pulse Rate 66 09/26/24 18:55 Respiratory Rate 19 09/26/24 18:55 Blood Pressure 190/126 09/26/24 18:55 O2 Sat by Pulse Oximetry 99 09/26/24 18:55 Pain Scale Pain Intensity 0 - Physical Exam General Appearance: no apparent distress, alert Eye Exam: PERRL/EOMI, eyes nml inspection Ears, Nose, Throat Exam: normal ENT inspection, moist mucous membranes Neck Exam: normal inspection, non-tender, supple, full range of motion Respiratory Exam: normal breath sounds, lungs clear, airway intact, No respiratory distress Cardiovascular Exam: regular rate/rhythm, normal heart sounds, normal peripheral pulses Gastrointestinal/Abdomen Exam: soft, normal bowel sounds, No tenderness, No mass Back Exam: normal inspection, normal range of motion, No CVA tenderness, No vertebral tenderness Extremity Exam: normal inspection, normal range of motion, pelvis stable Neurologic Exam: alert, oriented x 3, cooperative, normal mood/affect, sensation nml, No motor deficits Skin Exam: normal color, warm, dry, No rash Lymphatic Exam: No adenopathy SpO2 Interpretation: normal SpO2: 99 O2 Delivery: Room Air - Course Nursing assessment & vital signs reviewed: Yes EKG Interpreted by Me: RATE (60 atrial paced), NORMAL AXIS, NORMAL INTERVALS, NORMAL QRS Ordered Tests: Active Orders 24 hr Category Date 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 09/26/24 19:27 Active EKG-ER Only STAT Care 09/26/24 19:26 Active Pulse Oximetry (ED) STAT Care 09/26/24 19:26 Active CBC W DIFF Stat Lab 09/26/24 19:40 Completed CMP Stat Lab 09/26/24 19:40 Completed CULTURE,URINE Stat Lab 09/26/24 19:45 Received NT PRO BNPII Stat Lab 09/26/24 19:40 Completed TROPONIN Q4H Lab 09/26/24 19:40 Completed TROPONIN Q4H Lab 09/26/24 22:00 Completed TROPONIN Q4H Lab 09/27/24 00:35 Completed UA W/RFX UR CULTURE Stat Lab 09/26/24 19:45 Completed Medication Summary Discontinued Medications Generic Name Dose Route Start Last Admin Trade Name Freq PRN Reason Stop Dose Admin Aspirin 324 mg 09/27/24 01:28 09/27/24 01:37 Aspirin 81 Mg Tab.Chew PO 09/27/24 01:29 324 mg STAT ONE Administration Aspirin Confirm 09/27/24 01:37 Aspirin 81 Mg Tab.Chew Administered 09/27/24 01:38 Dose 324 mg .ROUTE .STK-MED ONE Nitrofurantoin Macrocrystals 100 mg 09/26/24 20:33 09/26/24 20:43 Nitrofurantoin Macro 100 Mg Capsule PO 09/26/24 20:34 100 mg STAT ONE Administration Nitrofurantoin Macrocrystals Confirm 09/26/24 20:42 Nitrofurantoin Macro 100 Mg Capsule Administered 09/26/24 20:43 Dose 100 mg .ROUTE .STK-MED ONE Lab/Rad Data: Laboratory Result Diagrams 09/26/24 19:40 09/26/24 19:40 Laboratory Results 09/27/24 09/26/24 09/26/24 Range/Units 00:35 22:00 19:45 WBC (3.98-10.04) x10^3/uL RBC (3.93-5.22) x10^6/uL Hgb (11.2-15.7) g/dL Hct (34.1-44.9) % MCV (79.4-94.8) fL MCH (25.6-32.2) pg MCHC (32.2-35.5) g/dL RDW (11.7-14.4) % Plt Count (182-369) x10^3/uL MPV (9.4-12.3) fL Gran % (34.0-71.1) % Immature Gran % (Auto) (0.001-0.429) % Nucleat RBC Rel Count (0.00-0.2) % Eos # (Auto) (0.04-0.36) x10^3/uL Immature Gran # (Auto) (0.001-0.031) x10^3u/L Absolute Lymphs (auto) (1.18-3.74) x10^3/uL Absolute Monos (auto) (0.24-0.86) x10^3/uL Absolute Nucleated RBC (0.00-0.012) x10^3u/L Lymphocytes % (19.3-51.7) % Monocytes % (4.7-12.5) % Eosinophils % (0.7-5.8) % Basophils % (0.1-1.2) % Absolute Granulocytes (1.56-6.13) x10^3/uL Basophils # (0.01-0.08) x10^3/uL Sodium (135-145) mmol/L Potassium (3.5-5.1) mmol/L Chloride (98-107) mmol/L Carbon Dioxide (22-30) mmol/L Anion Gap (5-15) MEQ/L BUN (7-17) mg/dL Creatinine (0.52-1.04) mg/dL Estimated GFR ML/MIN Glucose (74-106) mg/dL Calcium (8.4-10.2) mg/dL Total Bilirubin (0.2-1.3) mg/dL AST (14-36) U/L ALT (0-35) U/L Alkaline Phosphatase (38-126) U/L Troponin I 0.033 0.016 (0.000-0.033) ng/mL NT-Pro-B Natriuret Pep (<300) pg/mL Serum Total Protein (6.3-8.2) g/dL Albumin (3.5-5.0) g/dL Urine Color Yellow (Yellow) Urine Appearance Clear (Clear) Urine pH 6.0 (4.6-8.0) Ur Specific [place] <=1.005 (1.005-1.030) Urine Protein Negative (Negative) Urine Glucose (UA) Negative (Negative) mg/dL Urine Ketones Negative (Negative) Urine Blood Negative (Negative) Urine Nitrite Negative (Negative) Urine Bilirubin Negative (Negative) Urine Urobilinogen 0.2 (0.2) mg/dL Ur Leukocyte Esterase Moderate A (Negative) U Hyaline Cast (Auto) NONE SEEN (0-2) /LPF Urine Microscopic RBC 0-2 (0-5) /HPF Urine Microscopic WBC 21-50 A (0-5) /HPF Ur Epithelial Cells None Seen (None Seen) /HPF Urine Bacteria None Seen (None Seen) /HPF Urine Culture Reflexed YES (NO) 09/26/24 09/26/24 09/26/24 Range/Units 19:40 19:40 19:40 WBC 7.3 (3.98-10.04) x10^3/uL RBC 4.12 (3.93-5.22) x10^6/uL Hgb 13.3 (11.2-15.7) g/dL Hct 37.8 (34.1-44.9) % MCV 91.7 (79.4-94.8) fL MCH 32.3 H (25.6-32.2) pg MCHC 35.2 (32.2-35.5) g/dL RDW 12.6 (11.7-14.4) % Plt Count 233 (182-369) x10^3/uL MPV 10.1 (9.4-12.3) fL Gran % 49.2 (34.0-71.1) % Immature Gran % (Auto) 0.3 (0.001-0.429) % Nucleat RBC Rel Count 0.0 (0.00-0.2) % Eos # (Auto) 0.13 (0.04-0.36) x10^3/uL Immature Gran # (Auto) 0.02 (0.001-0.031) x10^3u/L Absolute Lymphs (auto) 2.93 (1.18-3.74) x10^3/uL Absolute Monos (auto) 0.56 (0.24-0.86) x10^3/uL Absolute Nucleated RBC 0.00 (0.00-0.012) x10^3u/L Lymphocytes % 40.2 (19.3-51.7) % Monocytes % 7.7 (4.7-12.5) % Eosinophils % 1.8 (0.7-5.8) % Basophils % 0.8 (0.1-1.2) % Absolute Granulocytes 3.58 (1.56-6.13) x10^3/uL Basophils # 0.06 (0.01-0.08) x10^3/uL Sodium 131 L (135-145) mmol/L Potassium 4.2 (3.5-5.1) mmol/L Chloride 96 L (98-107) mmol/L Carbon Dioxide 22 (22-30) mmol/L Anion Gap 16.6 H (5-15) MEQ/L BUN 13 (7-17) mg/dL Creatinine 0.77 (0.52-1.04) mg/dL Estimated GFR 80.9 ML/MIN Glucose 106 (74-106) mg/dL Calcium 9.6 (8.4-10.2) mg/dL Total Bilirubin 0.50 (0.2-1.3) mg/dL AST 36 (14-36) U/L ALT 32 (0-35) U/L Alkaline Phosphatase 64 (38-126) U/L Troponin I < 0.012 (0.000-0.033) ng/mL NT-Pro-B Natriuret Pep 129 (<300) pg/mL Serum Total Protein 6.6 (6.3-8.2) g/dL Albumin 4.4 (3.5-5.0) g/dL Urine Color (Yellow) Urine Appearance (Clear) Urine pH (4.6-8.0) Ur Specific [place] (1.005-1.030) Urine Protein (Negative) Urine Glucose (UA) (Negative) mg/dL Urine Ketones (Negative) Urine Blood (Negative) Urine Nitrite (Negative) Urine Bilirubin (Negative) Urine Urobilinogen (0.2) mg/dL Ur Leukocyte Esterase (Negative) U Hyaline Cast (Auto) (0-2) /LPF Urine Microscopic RBC (0-5) /HPF Urine Microscopic WBC (0-5) /HPF Ur Epithelial Cells (None Seen) /HPF Urine Bacteria (None Seen) /HPF Urine Culture Reflexed (NO) - Progress Progress: improved Progress Note: Patient troponin trending upward. The decision was made to transfer patient. 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 We contacted [place]. I spoke to hospitalist accepts transfer at 2:03 AM. Patient received aspirin. requested to hold off on heparin. Patient has no active chest pain no nitro indicated at this time. They will ca ll us back with a bed assignment. 09/27/24 02:03 74-year-old female presents to our ED for evaluation of elevated blood pressure. Blood pressure in the 160s to 170s. Patient concerned with lower extremity swelling. No lower extremity swelling observed on physical exam. Physical exam otherwise negative. Troponin ordered. Troponin gradually trending upward. Patient otherwise asymptomatic no chest pain at all. Aspirin administered. EKG shows a paced rhythm. No ischemic changes on EKG observed. Patient will be transferred to [facility] per her request to be evaluated by her cardiolo gist. Patient agrees to transfer to [facility] for further evaluation and treatment. No chest pain. No shortness of breath. Normal pulmonary exam. There are lung don. Normal saturation. No cough. No tachypnea. No hypoxia. Chest x-ray not ordered. Portions of this note were created with voice recognition technology. There may be grammatical, spelling, punctuation or sound alike errors Complexity of problem addressed is moderate acute complicated. No critical care time. Complex of data reviewed and analyzed is extensive. Test ordered chest reviewed results analyzed and correlated clinically with history and physical examination. Management discussed with receiving hospitalist will except admission to observation. Risk of complication and or risk of morbidity/mortal ity of patient management is high. Patient requires hospitalization/transfer to higher level of care. Vital stable. Time spent to transfer patient is approximately 20 minutes. Plan of care established for shared decision making. No social determinants of health present to impede follow-up. Portions of this note were created with voice recognition technology. There may be grammatical, spelling, punctuation or sound alike errors 09/27/24 02:55 Counseled pt/family regarding: lab results, diagnosis - Departure Departure Disposition: Home Clinical Impression: UTI (urinary tract infection), Uptrending cardiac troponin Condition: Stable Critical Care Time: No Referrals: WANDA WETZEL, MILIEU COUNSELOR [Primary Care Provider] - Follow up/PCP as directed Additional Instructions: Discharge/Care Plan CHRISTIANO ALBRIGHT was seen on 09/26/24 in the Emergency Room. The patient was counseled regarding Diagnosis,Lab results, Imaging studies, need for follow up and when to return to the Emergency Room. Prescriptions given: Discharge Note I have spoken with the patient and/or caregivers. I have explained the patient's condition, diagnosis and treatment plan based on the information available to me at this time. I have answered the patient's and/or caregiver's questions and addressed any concerns. The patient and/or caregivers have as good understanding of the patient's diagnosis, condition and treatment plan as can be expected at this point. The vital signs have been stable. The patient's condition is stable and appropriate for discharge from the emergency department. The patient will pursue further outpatient evaluation with the primary care physician or other designated or consulting physician as outlined in the discharge instructions. The patient and/or caregivers are agreeable to this plan of care and follow-up instructions have been explained in detail. The patient and/or caregivers have received these instruction. The patient/and or caregivers are aware that any significant change in condition or worsening of symptoms should prompt an immediate return to this or the closest emergency department or call 911. Prescriptions: Nitrofurantoin Macro 100 mg [Macrobid 100MG Capsule] 100 mg PO BID 7 Days #14 cap
[2024-09-26 19:47] LABS: Absolute Neutrophil Ct (ANC) 3.58 x10^3/uL (1.56-6.13); BASOPHIL % 0.8 % (0.1-1.2); Basophil (Absolute #) 0.06 x10^3/uL (0.01-0.08); Eosinophil % 1.8 % (0.7-5.8); Eosinophil (Absolute #) 0.13 x10^3/uL (0.04-0.36); Hematocrit 37.8 % (34.1-44.9); Hemoglobin 13.3 g/dL (11.2-15.7); IMMATURE GRAN # 0.02 x10^3u/L (0.001-0.031); IMMATURE GRAN % 0.3 % (0.001-0.429); Lymphocyte (Absolute #) 2.93 x10^3/uL (1.18-3.74); Lymphocytes % 40.2 % (19.3-51.7); Mean Cell Volume 91.7 fL (79.4-94.8); Mean Corpuscular Hemoglobin 32.3 pg (25.6-32.2); Mean Corpuscular Hgb Concent. 35.2 g/dL (32.2-35.5); Mean Platelet Volume 10.1 fL (9.4-12.3); Monocyte (Absolute #) 0.56 x10^3/uL (0.24-0.86); Monocytes % 7.7 % (4.7-12.5); Neutrophil % 49.2 % (34.0-71.1); Platelet Count 233 x10^3/uL (182-369); Red Blood Count 4.12 x10^6/uL (3.93-5.22); Red Cell Distribution Width 12.6 % (11.7-14.4); White Blood Count 7.3 x10^3/uL (3.98-10.04)
[2024-09-26 19:52] LABS: Appearance Clear (Clear); Bacteria None Seen /HPF (None Seen); Bilirubin Negative (Negative); Blood Negative (Negative); Epithelial Cells None Seen /HPF (None Seen); Glucose, Urine Negative (Negative); Hyaline Casts NONE SEEN /LPF (0-2); Ketones Negative (Negative); Leukocyte Esterase Moderate (Negative); Nitrite Negative (Negative); Protein,Urine Dip Negative (Negative); RBC 0-2 /HPF (0-5); Specific Gravity <=1.005 (1.005-1.030); Urobilinogen 0.2 mg/dL (0.2); WBC 21-50 /HPF (0-5)
[2024-09-26 20:19] LABS: ALBUMIN 4.4 g/dL (3.5-5.0); ANION GAP 16.6 MEQ/L (5-15); BILIRUBIN,TOTAL 0.5 mg/dL (0.2-1.3); Calcium 9.6 mg/dL (8.4-10.2); Creatinine 1 0.77 mg/dL (0.52-1.04); EST GLOMERULAR FILTRATION RATE 80.9 ML/MIN; Potassium 4.2 mmol/L (3.5-5.1); Total Protein 6.6 g/dL (6.3-8.2)
[2024-09-26] MEDS ORDERED: Macrobid 100MG Capsule ONE (20:42)
[2024-09-26] MEDS: Macrobid 100MG Capsule PO ONE (20:43)
[2024-09-27] MEDS: BABY ASPIRIN 81 MG CHEW PO ONE (01:37)
[2024-09-27] MEDS ORDERED: BABY ASPIRIN 81 MG CHEW ONE (01:37)
[2024-09-27 04:10] VITALS: RESP 18
[2024-09-27 04:53] VITALS: BP 159/93; PULSE 64; O2SAT 98
== END 2024-09-27 04:56 | disposition short-term general hospital (02) ==
LOC: ED 18:42
DX: R79.89 Other specified abnormal findings of blood chemistry (principal); I10 Essential (primary) hypertension; N39.0 Urinary tract infection, site not specified; M79.89 Other specified soft tissue disorders; Z79.899 Other long term (current) drug therapy; R10.9 Unspecified abdominal pain; R19.7 Diarrhea, unspecified; R51.9 Headache, unspecified; E11.9 Type 2 diabetes mellitus without complications
CPT/HCPCS: 36000; 36415; 80053; 81001; 83880; 84484; 85025; 87077; 87086; 87186; 93005; 93041; 94760; 99285; A9270-GY

== ENCOUNTER 2024-11-05 09:32 | Emergency (ER) | payer MEDICARE ==
[2024-11-05 09:59] VITALS: TEMP 96.9
--- NOTE | 2024-11-05 10:10 | ERPHSYRPT ---
- History of Present Illness Time Seen by Provider: 11/05/24 10:06 Historian: patient Exam Limitations: no limitations Patient Subjective Stated Complaint: Pt was coming to our lab for some blood work and while walking in she began having a steady constant pain in her left side next to her breast, the pain has been constant for at least an hour Triage Nursing Assessment: Pt brought self to the ER, hypertensive, rates pain as 9/10, pulses normal, no difficulty breathing, pain localized to the left side next to the breast, pain is constant, skin n/w/d, doesn't appear to be in any distress Physician History: 74-year-old female history of diabetes presents to our ED for evaluation of left sided chest pain. Pain described as an ache that is localized to the left lateral chest wall. No radiation. Pain is constant. No specific worsening or improving factors. No associated nausea vomiting no diaphoresis. No trauma no fever. Symptoms are moderate in intensity. Patient rates her pain 9 out of 10. No specific worsening or improving factors. Patient voices no other complaints or concerns at this time. Portions of this note were created with voice recognition technology. There may be grammatical, spelling, punctuation or sound alike errors Timing/Duration: today Activities at Onset: none (Patient reports she was sitting getting her blood drawn when pain started) Quality: aching Location: other (Left lateral chest pain) Chest Pain Radiation: no radiation Severity of Pain-Max: moderate Severity of Pain-Current: mild Associated Symptoms: denies symptoms Prior Chest Pain/Cardiac Workup: no prior chest pain Nitro Today/Relief: no nitro taken today Aspirin Treatment Today: no aspirin today Allergies/Adverse Reactions: cefdinir Allergy (Verified 11/05/24 10:00) Hives Penicillins Adverse Reaction (Intermediate, Verified 11/05/24 10:00) Rash methylprednisolone [From Medrol] Adverse Reaction (Verified 11/05/24 10:00) Rash Tnvlsyo-VUO-DmP Reductase Inhibitor [Mfkvpyl-Uer-Kcx Reductase Inhibitor] Adverse Reaction (Verified 11/05/24 10:00) Muscle Aches Sulfa (Sulfonamide Antibiotics) Adverse Reaction (Verified 11/05/24 10:00) Rash Home Medications: ALPRAZolam [Xanax 0.25 mg] 1 mg PO HS 05/12/16 [History] Digoxin 0.125 mg Tablet [Lanoxin 0.125MG TABLET] 0.125 mg PO HS 05/12/16 [History] Magnesium Oxide 400 mg [Mag-Ox 400] 400 mg PO BID 05/12/16 [History] Montelukast Sodium [Singulair] 10 mg PO HS 05/12/16 [History] Spironolactone 25 mg [Aldactone 25 MG] 12.5 mg PO DAILY 05/12/16 [History] Escitalopram Oxalate [Lexapro] 10 mg PO DAILY 08/16/18 [History] Losartan Potassium 50 mg [Cozaar 50 MG] 12.5 mg PO DAILY 08/16/18 [Hi story] Aspirin EC 81 mg [Ecotrin 81 mg] 81 mg PO DAILY 05/07/24 [History] Niacin (Inositol Niacinate) [Niacin 500 mg Capsule] 1,000 mg PO BID 05/07/24 [History] Cyanocobalamin (Vitamin B-12) [Vitamin B12] 5,000 mcg PO DAILY 09/26/24 [History] Ergocalciferol (Vitamin D2) [Vitamin D2] 50,000 unit PO WEEKLY 09/26/24 [History] Metformin HCl 500 mg [Glucophage 500 MG] 500 mg PO DAILY 09/26/24 [History] Metoprolol Succinate 25 mg Xl* [Toprol-Xl 25MG Tablets] 12.5 mg PO HS 09/26/24 [History] [place]-3 Fatty Acids/Fish Oil [Fish Oil 1,200 mg Softgel] 2,400 mg PO DAILY 09/26/24 [History] Omeprazole 20 mg PO DAILY 09/26/24 [History] PANTOPRAZOLE 40 mg Tablet [Protonix 40MG Tablet] 40 mg PO BID 11/05/24 [History] Hx Tetanus, Diphtheria Vaccination/Date Given: Yes Hx Influenza Vaccination/Date Given: Yes Hx Pneumococcal Vaccination/Date Given: Yes Travel Risk - International Travel Have you traveled outside of the country in past 3 weeks: No - Emerging Infectious Disease Are you exhibiting symptoms associated with any current EIDs: No Symptoms: Abdominal Pain, Diarrhea, Headaches/Body Aches/ - Review of Systems Constitutional: No Symptoms, No Fever, No Chills Eyes: No Symptoms Ears, Nose, & Throat: No Symptoms Respiratory: No Symptoms, No Cough, No Dyspnea Cardiac: No Symptoms, No Chest Pain, No Edema, No Syncope Abdominal/Gastrointestinal: No Symptoms, No Abdominal Pain, No Nausea, No Vomiting, No Diarrhea Genitourinary Symptoms: No Symptoms, No Dysuria Musculoskeletal: No Symptoms, No Back Pain, No Neck Pain Skin: No Symptoms, No Rash Neurological: No Symptoms, No Dizziness, No Focal Weakness, No Sensory Changes Psychological: No Symptoms Endocrine: No Symptoms Hematologic/Lymphatic: No Symptoms Immunological/Allergic: No Symptoms All Other Systems: Reviewed and Negative - Past Medical History Pertinent Past Medical History: Yes Neurological History: No Pertinent History ENT History: Cataracts Cardiac History: Arrhythmia, Congestive Heart Failure, High Cholesterol, Hypertension Respiratory History: No Pertinent History Endocrine Medical History: Diabetes Type II Musculoskeletal History: Arthritis GI Medical History: Hernia, Other History: No Pertinent History Psycho-Social History: No Pertinent History Female Reproductive Disorders: Abnormal Uterine Bleeding Other Medical History: COVID - Past Surgical History Past Surgical History: Yes Neuro Surgical History: No Pertinent History Cardiac: Cardiac Catheterization, Internal Defibrillator, Pacemaker Respiratory: No Pertinent History Gastrointestinal: Hernia Repair Genitourinary: No Pertinent History Musculoskeletal: Orthopedic Surgery Female Surgical History: Hysterectomy Other Surgical History: right ankle fx, left hand surgery, left shoulder surgery - Social History Smoking Status: Never smoker Exposure to second hand smoke: No Drug Use: none - Social Determinants of Health Will the patient participate in the screening: Yes Do you worry about a steady place to live?: No Do you have any problems with any of the following?: No known problems In the past 12 months,have you had to go without utilities?: No Transportation Issues: No Has anyone in your support network made you feel unsafe?: No Have you or anyone in your house had to go without enough: No - Nursing Vital Signs Nursing Vital Signs: Initial Vital Signs Temperature 96.9 F 11/05/24 09:50 Pulse Rate 63 11/05/24 09:50 Respiratory Rate 19 11/05/24 09:50 Blood Pressure 146/66 11/05/24 09:50 O2 Sat by Pulse Oximetry 98 11/05/24 09:50 Pain Scale Pain Intensity 7 - Physical Exam General Appearance: no apparent distress, alert Eye Exam: PERRL/EOMI, eyes nml inspection Ears, Nose, Throat Exam: normal ENT inspection, moist mucous membranes Neck Exam: normal inspection, non-tender, supple, full range of motion Respiratory Exam: normal breath sounds, lungs clear, No respiratory distress Cardiovascular Exam: regular rate/rhythm, normal heart sounds Gastrointestinal/Abdomen Exam: soft, No tenderness, No mass Back Exam: normal inspection, No CVA tenderness, No vertebral tenderness Extremity Exam: normal inspection, normal range of motion Neurologic Exam: alert, oriented x 3, cooperative, normal mood/affect, sensation nml, No motor deficits Skin Exam: normal color, warm, dry Lymphatic Exam: No adenopathy SpO2 Interpretation: normal SpO2: 98 O2 Delivery: Room Air - Course Nursing assessment & vital signs reviewed: Yes EKG Interpreted by Me: RATE (60 atrial ventricular dual paced rhythm), NORMAL AXIS, NORMAL INTERVALS, NORMAL QRS - Radiology Exams Chest X-ray Interpretation: Teleradiologist Report (Continued nonacute chest with chronic features) Ordered Tests: Active Orders 24 hr Category Date Time Status Supervisor Extrusion STAT Care 11/05/24 10:06 Active EKG-ER Only STAT Care 11/05/24 10:05 Active IV Insertion STAT Care 11/05/24 10:05 Active Pulse Oximetry (ED) STAT Care 11/05/24 10:05 Active CHEST 1 VIEW (PORTABLE) Stat Exams 11/05/24 12:10 Completed CBC W DIFF Stat Lab 11/05/24 10:53 Completed CMP Stat Lab 11/05/24 10:53 Completed D-DIMER QUANTITATIVE Stat Lab 11/05/24 10:53 Completed NT PRO BNPII Stat Lab 11/05/24 10:53 Completed TROPONIN Q4H Lab 11/05/24 10:53 Completed TROPONIN Q4H Lab 11/05/24 13:05 Completed TROPONIN Q4H Lab 11/05/24 18:15 Ordered Medication Summary Discontinued Medications Generic Name Dose Route Start Last Admin Trade Name Freq PRN Reason Stop Dose Admin Aspirin 324 mg 11/05/24 10:10 11/05/24 10:22 Aspirin 81 Mg Tab.Chew PO 11/05/24 10:11 324 mg STAT ONE Administration Aspirin Confirm 11/05/24 10:21 Aspirin 81 Mg Tab.Chew Administered 11/05/24 10:22 Dose 324 mg .ROUTE .STK-MED ONE Nitroglycerin 1 gm 11/05/24 10:10 11/05/24 10:21 Nitroglycerin 1 Gm Packet TOP 11/05/24 10:11 1 gm STAT ONE Administration Nitroglycerin Confirm 11/05/24 10:21 Nitroglycerin 1 Gm Packet Administered 11/05/24 10:22 Dose 1 gm .ROUTE .STK-MED ONE Lab/Rad Data: Laboratory Result Diagrams 11/05/24 10:53 11/05/24 10:53 Laboratory Results 11/05/24 11/05/24 11/05/24 Range/Units 13:05 10:53 10:53 WBC (3.98-10.04) x10^3/uL RBC (3.93-5.22) x10^6/uL Hgb (11.2-15.7) g/dL Hct (34.1-44.9) % MCV (79.4-94.8) fL MCH (25.6-32.2) pg MCHC (32.2-35.5) g/dL RDW (11.7-14.4) % Plt Count (182-369) x10^3/uL MPV (9.4-12.3) fL Gran % (34.0-71.1) % Immature Gran % (Auto) (0.001-0.429) % Nucleat RBC Rel Count (0.00-0.2) % Eos # (Auto) (0.04-0.36) x10^3/uL Immature Gran # (Auto) (0.001-0.031) x10^3u/L Absolute Lymphs (auto) (1.18-3.74) x10^3/uL Absolute Monos (auto) (0.24-0.86) x10^3/uL Absolute Nucleated RBC (0.00-0.012) x10^3u/L Lymphocytes % (19.3-51.7) % Monocytes % (4.7-12.5) % Eosinophils % (0.7-5.8) % Basophils % (0.1-1.2) % Absolute Granulocytes (1.56-6.13) x10^3/uL Basophils # (0.01-0.08) x10^3/uL D-Dimer (0.0-0.50) mg/L Sodium (135-145) mmol/L Potassium (3.5-5.1) mmol/L Chloride (98-107) mmol/L Carbon Dioxide (22-30) mmol/L Anion Gap (5-15) MEQ/L BUN (7-17) mg/dL Creatinine (0.52-1.04) mg/dL Estimated GFR ML/MIN Glucose (74-106) mg/dL Calcium (8.4-10.2) mg/dL Total Bilirubin (0.2-1.3) mg/dL AST (14-36) U/L ALT (0-35) U/L Alkaline Phosphatase (38-126) U/L Troponin I < 0.012 < 0.012 (0.000-0.033) ng/mL NT-Pro-B Natriuret Pep (<300) pg/mL Serum Total Protein (6.3-8.2) g/dL Albumin (3.5-5.0) g/dL Digoxin 0.7 L (0.8-1.9) ng/mL 11/05/24 11/05/24 11/05/24 Range/Units 10:53 10:53 10:53 WBC 6.8 (3.98-10.04) x10^3/uL RBC 4.15 (3.93-5.22) x10^6/uL Hgb 13.0 (11.2-15.7) g/dL Hct 38.6 (34.1-44.9) % MCV 93.0 (79.4-94.8) fL MCH 31.3 (25.6-32.2) pg MCHC 33.7 (32.2-35.5) g/dL RDW 12.8 (11.7-14.4) % Plt Count 201 (182-369) x10^3/uL MPV 9.7 (9.4-12.3) fL Gran % 57.0 (34.0-71.1) % Immature Gran % (Auto) 0.3 (0.001-0.429) % Nucleat RBC Rel Count 0.0 (0.00-0.2) % Eos # (Auto) 0.10 (0.04-0.36) x10^3/uL Immature Gran # (Auto) 0.02 (0.001-0.031) x10^3u/L Absolute Lymphs (auto) 2.28 (1.18-3.74) x10^3/uL Absolute Monos (auto) 0.46 (0.24-0.86) x10^3/uL Absolute Nucleated RBC 0.00 (0.00-0.012) x10^3u/L Lymphocytes % 33.8 (19.3-51.7) % Monocytes % 6.8 (4.7-12.5) % Eosinophils % 1.5 (0.7-5.8) % Basophils % 0.6 (0.1-1.2) % Absolute Granulocytes 3.85 (1.56-6.13) x10^3/uL Basophils # 0.04 (0.01-0.08) x10^3/uL D-Dimer 0.29 (0.0-0.50) mg/L Sodium 134 L (135-145) mmol/L Potassium 4.4 (3.5-5.1) mmol/L Chloride 103 (98-107) mmol/L Carbon Dioxide 23 (22-30) mmol/L Anion Gap 12.4 (5-15) MEQ/L BUN 18 H (7-17) mg/dL Creatinine 0.81 (0.52-1.04) mg/dL Estimated GFR 76.1 ML/MIN Glucose 129 H (74-106) mg/dL Calcium 8.8 (8.4-10.2) mg/dL Total Bilirubin 0.50 (0.2-1.3) mg/dL AST 29 (14-36) U/L ALT 23 (0-35) U/L Alkaline Phosphatase 58 (38-126) U/L Troponin I (0.000-0.033) ng/mL NT-Pro-B Natriuret Pep < 20.0 (<300) pg/mL Serum Total Protein 6.4 (6.3-8.2) g/dL Albumin 4.2 (3.5-5.0) g/dL Digoxin (0.8-1.9) ng/mL - Progress Progress: improved Air Movement: good Progress Note: 74-year-old female presents to our ED with left-sided chest pain. Chest pain is ongoing. Preliminary workup negative. Negative troponin x 2. Negative chest x-ray. Heart score is a 4. We advise hospitalization for further evaluation and treatment. Patient declined. Patient states she has obligations at home that preclude her from staying. Patient also reports she has a cardiac stress test scheduled for tomorrow. Patient is of sound mind. Patient is appropriate to make informed and independent medical decisions. Patient understands that leaving AGAINST MEDICAL ADVICE can result in delayed diagnosis, increased risk of morbidity, mortality, short and long-term disability including . In spite of these risks, bossman ent has decided to leave AGAINST MEDICAL ADVICE. Patient understands that she may return to our ED at any point if she reconsiders. Patient agrees to follow- up with her primary care doctor within 48 hours for reevaluation. Patient voices no other complaints or concerns at this time. We will release patient AGAINST MEDICAL ADVICE per their request. Portions of this note were created with voice recognition technology. There may be grammatical, spelling, punctuation or sound alike errors Complexity of problem addressed is moderate acute complicated no critical care time complex of data reviewed and analyzed is moderate. Test ordered test reviewed results analyzed and correlated clinically with history and physical exam. Risk of complication and or risk of morbidity/mortality of patient management is low. Vital stable. Time spent to discharge patient is approximately 15 minutes. Patient discharged AMA. no social determinants of health present to impede follow-up. 11/05/24 14:38 Blood Culture(s) Obtained: No Antibiotics given: No Counseled pt/family regarding: lab results, diagnosis, need for follow-up, rad results - Departure Departure Disposition: AMA Clinical Impression: Chest pain, ACS (acute coronary syndrome) Condition: Stable Critical Care Time: No Referrals: WANDA WETZEL NP [Primary Care Provider] - Follow up/PCP as directed Additional Instructions: Discharge/Care Plan NATALEECHRISTIANO GRAHAM was seen on 11/05/24 in the Emergency Room. The patient was counseled regarding Diagnosis,Lab results, Imaging studies, need for follow up and when to return to the Emergency Room. Prescriptions given: Discharge Note I have spoken with the patient and/or caregivers. I have explained the patient's condition, diagnosis and treatment plan based on the information available to me at this time. I have answered the patient's and/or caregiver's questions and addressed any concerns. The patient and/or caregivers have as good understanding of the patient's diagnosis, condition and treatment plan as can be expected at this point. The vital signs have been stable. The patient's condition is stable and appropriate for discharge from the emergency department. The patient will pursue further outpatient evaluation with the primary care physician or other designated or consulting physician as outlined in the discharge instructions. The patient and/or caregivers are agreeable to this plan of care and follow-up instructions have been explained in detail. The patient and/or caregivers have received these instruction. The patient/and or caregivers are aware that any significant change in condition or worsening of symptoms should prompt an immediate return to this or the closest emergency department or call 911.
[2024-11-05] MEDS ORDERED: NITRO-BID 2% UD PACKETS ONE (10:21)
[2024-11-05] MEDS ORDERED: BABY ASPIRIN 81 MG CHEW ONE (10:21)
[2024-11-05] MEDS: NITRO-BID 2% UD PACKETS TOP ONE (10:21)
[2024-11-05] MEDS: BABY ASPIRIN 81 MG CHEW PO ONE (10:22)
[2024-11-05 10:52] LABS: Absolute Neutrophil Ct (ANC) 3.85 x10^3/uL (1.56-6.13); BASOPHIL % 0.6 % (0.1-1.2); Basophil (Absolute #) 0.04 x10^3/uL (0.01-0.08); Eosinophil % 1.5 % (0.7-5.8); Hematocrit 38.6 % (34.1-44.9); IMMATURE GRAN # 0.02 x10^3u/L (0.001-0.031); IMMATURE GRAN % 0.3 % (0.001-0.429); Lymphocyte (Absolute #) 2.28 x10^3/uL (1.18-3.74); Lymphocytes % 33.8 % (19.3-51.7); Mean Corpuscular Hemoglobin 31.3 pg (25.6-32.2); Mean Corpuscular Hgb Concent. 33.7 g/dL (32.2-35.5); Mean Platelet Volume 9.7 fL (9.4-12.3); Monocyte (Absolute #) 0.46 x10^3/uL (0.24-0.86); Monocytes % 6.8 % (4.7-12.5); Platelet Count 201 x10^3/uL (182-369); Red Blood Count 4.15 x10^6/uL (3.93-5.22); Red Cell Distribution Width 12.8 % (11.7-14.4); White Blood Count 6.8 x10^3/uL (3.98-10.04)
[2024-11-05 11:11] LABS: Potassium 4.4 mmol/L (3.5-5.1)
[2024-11-05 11:19] LABS: ALBUMIN 4.2 g/dL (3.5-5.0); ALKALINE PHOSPHATASE 58 U/L (38-126); BLOOD UREA NITROGEN 18 mg/dL (7-17); CHLORIDE 103 mmol/L (98-107); Calcium 8.8 mg/dL (8.4-10.2); Carbon Dioxide 23 mmol/L (22-30); Creatinine 1 0.81 mg/dL (0.52-1.04); EST GLOMERULAR FILTRATION RATE 76.1 ML/MIN; Glucose 129 mg/dL (74-106); NT PRO BNPII < 20.0 pg/mL (<300); SGOT/AST 29 U/L (14-36); SGPT/ALT 23 U/L (0-35); SODIUM 134 mmol/L (135-145); Total Protein 6.4 g/dL (6.3-8.2)
[2024-11-05 11:25] LABS: ANION GAP 12.4 MEQ/L (5-15)
--- NOTE | 2024-11-05 13:16 | XRAY ---
Indication: Left chest pain. Comparison: May 07, 2024 Portable chest again demonstrates left AICD partially obscuring left lung. Visualized lungs remain inflated and clear. Heart not enlarged. Bony thorax intact again with mild degenerative changes. Impression: Continued nonacute chest with chronic features.
[2024-11-05 14:42] VITALS: O2SAT 98
[2024-11-05 14:56] VITALS: BP 129/55; PULSE 61; RESP 18
== END 2024-11-05 14:55 | disposition left against medical advice (07) ==
LOC: ED 09:32
DX: R07.9 Chest pain, unspecified (principal); I24.9 Acute ischemic heart disease, unspecified; Z79.899 Other long term (current) drug therapy
CPT/HCPCS: 36415; 71045; 80053; 80162; 83880; 84484; 85025; 85379; 93005; 93041; 94760; 99284; A9270-GY

== ENCOUNTER 2025-02-12 09:34 | Day surgery (SDC) | payer MEDICARE ==
[2025-02-12] MEDS ORDERED: Depo-Medrol 40 MG/ML IM ONE (09:35)
[2025-02-12] MEDS ORDERED: BUPIVACAINE 0.5% VIAL IJ ONE (09:35)
[2025-02-12] MEDS ORDERED: Xylocaine-Mpf 2% 5 Ml Vial ONE (11:27)
[2025-02-12] MEDS ORDERED: propofoL IV ONE (11:28)
--- NOTE | 2025-02-12 12:46 | XRAY ---
Indication: Right shoulder and subacromial bursa injection. Intraoperative fluoroscopy provided for 15 seconds. 2 digital spot image submitted for interpretation demonstrates needle tip projecting over right glenohumeral joint. Second needle tip subacromial. Small amount of contrast injected for needle tip placement. Correlate with intraoperative findings/report.
--- NOTE | 2025-02-12 13:56 | XRAY ---
15 seconds of fluoroscopy was used in surgery for a right intra-articular shoulder and subacromial bursa injection.
== END 2025-02-12 12:05 | disposition home or self-care (01) ==
LOC: SDC-PAIN 09:34
PROVIDERS: ATTEND Psychiatry & Neurology Pain Medicine
DX: M19.011 Primary osteoarthritis, right shoulder (principal); M75.51 Bursitis of right shoulder; E11.9 Type 2 diabetes mellitus without complications
CPT/HCPCS: 20610; 73030; 77002; 82947; J2704; Q9966

== ENCOUNTER 2025-03-06 14:38 | Day surgery (SDC) | payer MEDICARE ==
[2025-03-06] MEDS ORDERED: LIDOCAINE HCL 1% AMPUL 5 ML IJ ONE (14:39)
[2025-03-06] MEDS ORDERED: BUPIVACAINE 0.5% VIAL IJ ONE (14:39)
[2025-03-06] MEDS ORDERED: Depo-Medrol 40 MG/ML IM ONE (14:39)
--- NOTE | 2025-03-06 19:47 | XRAY ---
Indication: Left greater trochanter bursa injection. Intraoperative fluoroscopy provided for 9 seconds. Single digital spot image submitted for interpretation demonstrates needle tips projecting lateral to left greater trochanters. Small amount of contrast injected for needle tip placement. Correlate with intraoperative findings/report.
--- NOTE | 2025-03-07 18:01 | XRAY ---
9 seconds of fluoroscopy was used in surgery for a left greater trochanteric bursa injection.
== END 2025-03-06 17:00 | disposition home or self-care (01) ==
LOC: SDC-PAIN 14:38
PROVIDERS: ATTEND Psychiatry & Neurology Pain Medicine
DX: M16.12 Unilateral primary osteoarthritis, left hip (principal); E11.9 Type 2 diabetes mellitus without complications
CPT/HCPCS: 20610; 73501; 77002; 82947; Q9966

== ENCOUNTER 2025-09-03 07:26 | Day surgery (SDC) | payer MEDICARE ==
[2025-09-03] MEDS ORDERED: methylPREDNISolone acetate IM ONE (07:27)
[2025-09-03] MEDS ORDERED: BUPIVACAINE 0.5% VIAL IJ ONE (07:27)
[2025-09-03] MEDS ORDERED: propofoL IV ONE (09:33)
[2025-09-03] MEDS ORDERED: Lactated Ringers 1,000 ML IV ONE (09:53)
--- NOTE | 2025-09-03 12:29 | XRAY ---
Indication: Left hip and greater trochanter bursa injection. Intraoperative fluoroscopy provided for 10 seconds. 2 digital spot image submitted for interpretation demonstrates needle tip lateral to left femur neck. 2nd needle tip lateral to greater trochanter. Small amount of contrast injected for both needle tip placement. Correlate with intraoperative findings/report.
--- NOTE | 2025-09-03 12:48 | XRAY ---
10 seconds of fluoroscopy was used in surgery for a left intra-articular hip and greater trochanteric bursa injection.
== END 2025-09-03 10:00 | disposition home or self-care (01) ==
LOC: SDC-PAIN 07:26
PROVIDERS: ATTEND Psychiatry & Neurology Pain Medicine
DX: M16.12 Unilateral primary osteoarthritis, left hip (principal); E11.9 Type 2 diabetes mellitus without complications; M70.62 Trochanteric bursitis, left hip